=== PATIENT | female | born 1955 | race Caucasian/White ===

== ENCOUNTER → 2017-08-12 | Outpatient (CLI) | payer BC | LOC: CPRE 11:58 | PROVIDERS: ATTEND Obstetrics & Gynecology | DX: N83.201 Unspecified ovarian cyst, right side (principal); R10.2 Pelvic and perineal pain ==

== ENCOUNTER → 2017-08-17 | Day surgery (SDC) | payer BC ==
[~2017-08-17] VITALS: Ht 163.8 cm; Wt 77.4 kg
[~2017-08-17] MED LIST: ACETAMINOPHEN 500 MG CPLT ONE; ACETAMINOPHEN 500 MG CPLT PO ONE; BUPIVACAINE HCL PF 0.5% 30 ML VIAL ONE; BUPIVACAINE/EPINEPHRINE 0.5% 50 ML VIAL ONE; CHLORHEXIDINE GLUCONATE 2 % 1 PACK (2 CLOTHS) TOPICAL PRN; DO NOT ADM ANY ANTICOAGULANT DRUGS PRN; GABAPENTIN 300 MG CAP PO ONE; HYDROmorphone HCL PF 2 MG/ML VIAL IV PUSH PRN; LACTATED RINGER'S 1000 ML IV PRN; METOPROLOL TARTRATE 25 MG TAB PO PRN; ONDANSETRON HCL 4 MG/2 ML VIAL IVP PRN; POVIDONE IODINE 5% (ANTISEPSIS KIT) 4 APPLICATIONS EACH NARE PRN; SODIUM CHLORID 0.9% 500 ML IV PRN; SODIUM CHLORIDE 0.9% FLUSH 10 ML FLUSH IV FLUSH PRN; SODIUM CHLORIDE 0.9% FLUSH 10 ML FLUSH IV FLUSH SCH; VASOPRESSIN 20 UNITS/ML VIAL (IVTITR) ONE; diphenhydrAMINE HCL 25 MG CAP PO PRN; oxyCODONE/ACETAMINOPHEN 5 MG/325 MG TAB PO PRN
--- NOTE | 2017-08-17 15:25 | HHI.PR ---
Immediate Post Op Note Procedure Date: Aug 17, 2017 Pre Op Diagnosis: (1) Right ovarian cyst (2) Female pelvic pain Post Op Diagnosis: (1) Female pelvic pain (2) Right ovarian cyst Surgeon: Carlos Gerardo Mailroom Coordinator(s): None Procedure: Laparoscopic bilateral salpingo-oophorectomy, lysis of adhesions Findings: Normal appearing uterus, right fundal submucosal fibroid, previously ligated fallopian tubes, enlarged right ovarian cyst, fluid-filled clear, normal left ovary, epiploic adhesions to the abdominal wall and left cornua. Normal- appearing liver, inclusion cyst of the right superior anterior abdominal wall. Pre-existing umbilical hernia, left inguinal hernia Additional Information: Antibiotics: None required Urine output: 200 cc clear Fluid replacement: 1700 cc lactated Ringer's Addition: Stable to PACU then home Dictation number: [id number] Complications: None Specimen(s) removed: Bilateral ovaries sent separately with residual fallopian tube Estimated blood loss: 50 cc Anesthesia: General Drains: None Fluids: 1700 IVF Urinary Output (mLs): 200 Patient to: PACU Patient Condition: Good Carlos Gerardo MD Aug 17, 2017 15:25
[2017-08-17 17:29] VITALS: BP 105/62; PULSE 48; RESP 16; TEMP 97.5; O2SAT 96
--- NOTE | 2017-08-18 20:54 | MP ---
cc: EL CRANE MD DATE OF SURGERY 08/17/17 PREOPERATIVE DIAGNOSIS 1. pelvic pain. 2. Suspected right ovarian cyst. POSTOPERATIVE DIAGNOSIS 1. pelvic pain. 2. Confirmed right ovarian cyst. 3. Intraabdominal adhesions. 4. Umbilical hernia 5. Left inguinal hernia SURGEON El. MD [employer] LIAISON SURGEON None. PROCEDURE Laparoscopic bilateral salpingo-oophorectomy, lysis of adhesions FINDINGS 1. Normal external female genitalia, vagina and cervix. 2. Normal appearing uterus, right submucosal fundal fibroid, surgically absent mid segment of fallopian tubes, normal left ovary, 3. Enlarged right ovary with smooth appearing surface, clear fluid upon rupture outside of the abdomen. Epiploic adhesions to the abdominal wall, right, and left cornua. Normal-appearing liver, inclusion cyst of the right superior anterior abdominal wall, pre-existing umbilical hernia and left inguinal hernia with no herniated contents. SPECIMENS Bilateral ovaries sent separately to pathology routine, residual segments of fallopian tubes. FLUID REPLACEMENT 1700 mL of lactated ringers URINE OUTPUT 200 mL of clear via Joy. ESTIMATED BLOOD LOSS 50 cc ANESTHESIA General endotracheal with 1% Lidocaine with epinephrine for port sites. ANTIBIOTICS None required. PROPHYLAXIS DVT prophylaxis sequential compression devices throughout the case. COUNTS Correct times two TIME OUT Done, correct. DISPOSITION Stable to post anesthesia care unit then to home. INDICATIONS This patient is a 62 year old female who came to the outpatient clinic with onset of abdominal pelvic pain. She had an ultrasound that showed a simple appearing right ovarian cyst, normal CA 125 and counseled for the above procedure. Please see H&P for further details and consent. PROCEDURE IN DETAIL The patient was taken to the operating room, placed in lithotomy position in yellow fin stirrups with the left arm tucked. Her abdomen, vagina and perineum were prepped and draped in the sterile fashion. A Hulka uterine manipulator was inserted below and a Joy in the bladder. Attention was turned to the abdomen and local anesthesia was used for all port sites. A 10 mm vertical umbilical incision was made and with optical view technique a 10mm trocar was inserted into the abdomen was entered and insufflated with CO2 gas. Two left lower quadrant ports were inserted without difficulty. Abdominal survey was performed. Please see above for details. Using the Enseal the infundibulopelvic ligaments were ligated on either side and the left ovary was easily transected from the mesosalpinx to the uterine ovarian ligament. The same was done for the right ovary and cyst with some additional dissection off the right pelvic sidewall. Dissection was well away from the ureters and were visualized parastalsing following surgery. The uterine artery had some slow ooze on the right side that was on the underside of the right broad ligament which was dissected open to remove the right ovary. It was difficult to obtain hemostasis based on the angle and to acheive hemostasis the right round ligament was transected with the enseal and with bipolar energy hemostasis was achieved. The pelvis was irrigated and general hemostasis was appreciated. The right pelvic sidewall had some generalized oozing and Surgicel powder was applied. The specimens were both placed in an EndoCatch bags and and brought to the umbilical site and ruptured outside of the abdomen and drained and removed easily. The fascia was closed at the midline with running 0 Vicryl and left lower quadrant ports were removed. The skin was closed with 4-0 Monocryl and skin glue applied overlaying. The patient was awakened from anesthesia and transferred to post anesthesia care unit in stable condition. MD PEDRITO Dixon/ /3:18 PM /8:22 PM BRICE
== END | disposition home or self-care (01) ==
LOC: HSDC 10:41 → EDUNIT# 13:00
PROVIDERS: ATTEND Obstetrics & Gynecology
DX: D27.0 Benign neoplasm of right ovary (principal); D27.1 Benign neoplasm of left ovary; N80.1 Endometriosis of ovary; N83.8 Other noninflammatory disorders of ovary, fallopian tube and broad ligament; K66.0 Peritoneal adhesions (postprocedural) (postinfection); K42.9 Umbilical hernia without obstruction or gangrene; K40.90 Unilateral inguinal hernia, without obstruction or gangrene, not specified as recurrent
CPT/HCPCS: 00840; 58661; 86850; 86900; 86901; 88305; J3010; J7120